=== PATIENT | male | born 1985 | race Caucasian/White ===

== ENCOUNTER 2024-03-14 11:49 | Emergency (ER) | payer OTHER, SELFPAY ==
[2024-03-14 12:00] VITALS: BP 168/121; PULSE 85; RESP 16; TEMP 36.5; O2SAT 95; BMI 38.9
--- NOTE | 2024-03-14 12:42 | ED_ITS ---
HPI - Abdominal Pain 2 General: Chief Complaint: Abdominal Pain Stated Complaint: belly button pain and bleeding Time Seen by Provider: 03/14/24 12:38 Source: patient Mode of arrival: ambulatory Limitations: no limitations History of Present Illness: 39-year-old male states he has been havi ng some pain in his umbilicus over the last week. States he had some drainage from the umbilicus and has had erythema around his stomach to thinks he had roughly palm sized area of erythema he has noticed it is red. States pain sharp in nature rates a 7 out of 10 denies any fevers denies any vomiting or diarrhea Associated Symptoms: Denies chills, diarrhea, dysuria, fever(s), nausea and vomiting Review of Systems 2 Const: Denies: fever(s), chills, body aches or change in appetite ENMT: Denies: throat pain or dental pain Card: Denies: chest pain Resp: Denies: dyspnea GI: Reports: abdominal pain; Denies: nausea, vomiting or diarrhea : Denies: dysuria Musc: Denies: neck pain or back pain Skin/Breast: Reports: erythema; Denies: rash Neuro: Denies: headache(s) Physical Exam 2 Const: COMMON NORMALS: no acute distress, patient oriented x3 and healthy appearing HENMT: COMMON NORMALS: normocephalic and atraumatic HEAD & SCALP: n ormocephalic and atraumatic Eye: COMMON NORMALS: conjunctivae normal CONJUNCTIVA: Yes conjunctivae normal Neck/C-Spine: COMMON NORMALS: full ROM and supple Chest: COMMONS NORMALS: normal inspection of the chest Resp: COMMON NORMALS: normal respiratory effort Cardio: COMMON NORMALS: regular rate, regular rhythm and No murmurs present (Cardio) RATE: regular rate RHYTHM: regular rhythm GI: COMMON NORMALS: Soft to palpation, non-tender and no masses PALPATION: Yes Soft to palpation OTHER: Slight drainage noted from umbilicus he does have surrounding erythema consistent with a cellulitis Extremity: COMMON NORMALS: normal to inspection and full ROM Neuro: COMMON NORMALS: patient oriented x3, moves all extremities and no focal motor deficits Psych: COMMON NORMALS: mental status grossly normal, Normal thought process present and cooperative THOUGHT PROCESS: Normal thought process present Skin: COMMON NORMALS: no rashes or lesions noted and no wounds GENERAL SKIN EXAM: no rashes or lesions noted Course 2 Vital Signs: Vital signs: Vital Signs Temperature 97.7 F 03/14/24 12:00 Pulse Rate 95 03/14/24 13:02 Respiratory Rate 16 03/14/24 12:00 Blood Pressure 170/111 03/14/24 13:02 Pulse Oximetry 96 03/14/24 13:02 Oxygen Delivery Me thod Room Air 03/14/24 13:02 MDM - Abdominal Pain Medical Decision Making Patient presents here cellulitis at his umbilicus no abscess we will start him on antibiotics he is follow-up with PCP return if worsening. Medical Records I reviewed the patient's medical records. Lab Data I reviewed the patient's lab results. 03/14/24 12:21 03/14/24 12:21 Labs/Radiology: Radiology Impressions Abdomen/Pelvis CT 03/14/24 12:46 IMPRESSION: 1. Prominent periumbilical soft tissue prominence, subcutaneous edema and overlying skin thickening, compatible with cellulitis. No convincing organized collection. 2. 4 mm right lower lobe nodular density. For patients at low risk (minimal or absent history of smoking and of other known risk factors), no routine follow-up is indicated. For patients at high risk (history of smoking or of other known risk factors), consider optional CT Chest at 12 months. (Reference: Manoj) 3. Additional findings, as above. REFERENCES: Manoj Mast, et al. Guidelines for Management of Incidental Pulmonary Nodules Detected on CT Images: From the Fleischner Society 2017. Radiology. 2017;284(1):228-243. Laboratory Results WBC 16.57 10^3/uL (3.29-11.43) H 03/14/24 12:21 RBC 4.89 10^6/uL (3.85-5.65) 03/14/24 12:21 Hgb 15.60 g/dL (11.27-16.99) 03/14/24 12:21 Hct 45.4 % (37-53) 03/14/24 12:21 MCV 92.8 fl (82-101) 03/14/24 12:21 MCH 31.9 pg (27-33) 03/14/24 12:21 MCHC 34.4 g/dL (30-55) 03/14/24 12:21 RDW 12.7 % (12.1-15.1) 03/14/24 12:21 Plt Count 305 10^3/cmm (157-399) 03/14/24 12:21 MPV 9.8 fL (7.4-10.4) 03/14/24 12:21 Neut % (Auto) 77.2 % 03/14/24 12:21 Lymph % (Auto) 13.9 % 03/14/24 12:21 [place] % (Auto) 6.2 % 03/14/24 12:21 Eos % (Auto) 1.6 % 03/14/24 12:21 Baso % (Auto) 0.4 % 03/14/24 12:21 Neut # (Auto) 12.79 10^3/uL (1.8-7.7) H 03/14/24 12:21 Lymph # (Auto) 2.3 10^3/uL (0.8-4.8) 03/14/24 12:21 [place] # (Auto) 1.0 10^3/uL (0.2-0.9) H 03/14/24 12:21 Eos # (Auto) 0.3 10^3/uL (0.0-0.8) 03/14/24 12:21 Baso # (Auto) 0.1 10^3/uL (0.0-0.1) 03/14/24 12:21 Nucleated RBC % (auto) 0 % 03/14/24 12:21 Nucleated RBCs # 0.0 /100WBC 03/14/24 12:21 PT 13.50 SECONDS (12.1-14.9) 03/14/24 12:21 INR 1.00 (0.8-1.2) 03/14/24 12:21 Sodium 135 mmol/L (136-145) L 03/14/24 12:21 Potassium 3.7 mmol/L (3.5-5.1) 03/14/24 12:21 Chloride 99 mmol/L (98-107) 03/14/24 12:21 Carbon Dioxide 27 mmol/L (22-29) 03/14/24 12:21 Anion Gap 12.7 (5-19) 03/14/24 12:21 BUN 11 mg/dL (6-20) 03/14/24 12:21 Creatinine 0.8 mg/dL (0.7-1.2) 03/14/24 12:21 GFR Calculation 107.1 mL/min (90-130) 03/14/24 12:21 Glucose 184 mg/dL (65-115) H 03/14/24 12:21 Calculated Osmolality 284 mOsm/kg (285-295) L 03/14/24 12:21 Calcium 8.8 mg/dL (8.5-10.5) 03/14/24 12:21 Total Bilirubin 0.9 mg/dL (0.15-1.2) 03/14/24 12:21 AST 49 U/L (0-40) H 03/14/24 12:21 ALT 95 U/L (0-41) H 03/14/24 12:21 Alkaline Phosphatase 120 U/L (40-130) 03/14/24 12:21 Total Protein 7.8 g/dL (6.6-8.7) 03/14/24 12:21 Albumin 4.2 g/dL (3.5-5.2) 03/14/24 12:21 Globulin 3.6 g/dL (1.3-4.6) 03/14/24 12:21 Lipase 28 U/L (13-60) 03/14/24 12:21 All radiology interpretation(s) finalized by discharge Discharge Plan Discharge Patient Disposition: Home Clinical Impression: Cellulitis Qualifiers: Site of cellulitis: trunk Site of cellulitis of trunk: umbilicus Qualified Code(s): L03.316 - Cellulitis of umbilicus Condition: Stable Prescriptions: New cephalexin 500 mg capsule 500 mg PO TID 7 Days Qty: 21 0RF No Action sertraline 100 mg tablet 200 mg PO BEDTIME Discharge Orders: Discharge ED (Routine); Ordered 03/14/24 Ordered By: Thong Toussaint Referrals: Everardo Thomas DO [Primary Care Provider] - 1-3 days Discharge Diet: Advance as tolerated Discharge Activity: Resume usual activity Patient Instructions: Cellulitis (ED) Coding Level of Care Code ED Room Clerk for Nabila Farrar
[2024-03-14 12:43] LABS: Basophils # 0.1 10^3/uL (0.0-0.1); Basophils % 0.4 %; Eosinophils # 0.3 10^3/uL (0.0-0.8); Eosinophils % 1.6 %; Hematocrit 45.4 % (37-53); Lymphocytes # 2.3 10^3/uL (0.8-4.8); Lymphocytes % 13.9 %; Mean Corpuscular HGB Conc 34.4 g/dL (30-55); Mean Corpuscular Hemoglobin 31.9 pg (27-33); Mean Corpuscular Volume 92.8 fl (82-101); Mean Platelet Volume 9.8 fL (7.4-10.4); Monocytes % 6.2 %; Neutrophils # 12.79 10^3/uL (1.8-7.7); Neutrophils % 77.2 %; Nucleated Red Blood Cells % 0 %; Platelet Count 305 10^3/cmm (157-399); Red Blood Count 4.89 10^6/uL (3.85-5.65); Red Cell Distribution Width 12.7 % (12.1-15.1); White Blood Count 16.57 10^3/uL (3.29-11.43)
--- NOTE | 2024-03-14 12:46 | CTR_ITS ---
PROCEDURE INFORMATION: Exam: CT Abdomen And Pelvis With Contrast Exam date and time: 03/14/2024 1:14 PM Age: 39 years old Clinical indication: Abdominal pain; Periumbilical; Prior surgery; Surgery date: 6+ months; Surgery type: 4x hernia; Additional info: Abd pain TECHNIQUE: Imaging protocol: Computed tomography of the abdomen and pelvis with contrast. Axial, coronal and sagittal reformatted images were created and reviewed. Radiation optimization: All CT scans at this facility use at least one of these dose optimization techniques: automated exposure control; mA and/or kV adjustment per patient size (includes targeted exams where dose is matched to clinical indication); or iterative reconstruction. Contrast material: OMNI 350; Contrast volume: 100 ml; Contrast route: INTRAVENOUS (IV); COMPARISON: No relevant prior studies available. RADIATION DOSE METRICS: Total DLP (mGy-cm): 1216.8 FINDINGS: Lungs: 4 mm right lower lobe nodular density. Diaphragm: Small hiatal hernia. Liver: Mild hepatomegaly. Diffuse hepatic steatosis. Gallbladder and bile ducts: No radiodense gallstones. No biliary ductal dilatation. Pancreas: Unremarkable. Spleen: Unremarkable. Adrenal glands: Normal. No mass. Kidneys and ureters: No mass. No radiodense calculi. No hydronephrosis. Stomach and bowel: No bowel wall thickening. No obstruction. No pneumatosis. Appendix: Normal. Intraperitoneal space: No free fluid. No organized fluid collection. No free air. Vasculature: Unremarkable. No aneurysm. Lymph nodes: No pathologically enlarged lymph nodes. Urinary bladder: Unremarkable as visualized. Reproductive: Unremarkable. Bones/joints: No acute osseous abnormality. Soft tissues: Prominent periumbilical soft tissue prominence, subcutaneous edema and overlying skin thickening. No convincing organized collection. CT/CT abdomen pelvis w con* [id number] IMPRESSION: 1. Prominent periumbilical soft tissue prominence, subcutaneous edema and overlying skin thickening, compatible with cellulitis. No convincing organized collection. 2. 4 mm right lower lobe nodular density. For patients at low risk (minimal or absent history of smoking and of other known risk factors), no routine follow-up is indicated. For patients at high risk (history of smoking or of other known risk factors), consider optional CT Chest at 12 months. (Reference: Manoj) 3. Additional findings, as above. REFERENCES: Manoj Mast et al. Guidelines for Management of Incidental Pulmonary Nodules Detected on CT Images: From the Fleischner Society 2017. Radiology. 2017;284(1):228-243.
[2024-03-14 12:59] LABS: Alanine Aminotransferase 95 U/L (0-41); Albumin Level 4.2 g/dL (3.5-5.2); Alkaline Phosphatase 120 U/L (40-130); Anion Gap 12.7 (5-19); Aspartate Amino Transferase 49 U/L (0-40); Blood Urea Nitrogen 11 mg/dL (6-20); Calcium 8.8 mg/dL (8.5-10.5); Carbon Dioxide 27 mmol/L (22-29); Chloride 99 mmol/L (98-107); Creatinine Clr Calc Pharmacy 166.3208; Globulin 3.6 g/dL (1.3-4.6); Glomerular Filtration Rate 107.1 mL/min (90-130); Glucose 184 mg/dL (65-115); Lipase 28 U/L (13-60); Osmolality Calculated 284 mOsm/kg (285-295); Potassium 3.7 mmol/L (3.5-5.1); Sodium 135 mmol/L (136-145); Total Bilirubin 0.9 mg/dL (0.15-1.2); Total Protein 7.8 g/dL (6.6-8.7)
[2024-03-14 13:02] VITALS: BP 170/111; PULSE 95; O2SAT 96
[2024-03-14] MEDS: iohexol 350 mg/mL 500 mL Btl (per mL) IV (13:13)
[2024-03-14] MEDS: cefTRIAXone 1,000 MG in sodium chloride 0.9% (plus) 50 ML 100 MG IV (14:07)
[2024-03-14 14:10] VITALS: BP 140/95; PULSE 86; O2SAT 96
[2024-03-14 15:12] VITALS: BP 154/99; PULSE 93; O2SAT 96
== END 2024-03-14 15:10 | disposition home or self-care (01) ==
PROVIDERS: Emergency Provider Emergency Medicine; PCP Family Medicine
DX: L03.316 Cellulitis of umbilicus (principal)
CPT/HCPCS: 36415; 74177; 80053; 83690; 85025; 85610; 96374; 99285; J0696; Q9967

== ENCOUNTER 2024-12-24 08:11 | Inpatient (IN) | payer OTHER, SELFPAY ==
[2024-12-24 08:41] VITALS: BP 167/108; PULSE 94; RESP 19; TEMP 36.4; O2SAT 100; BMI 38.4
--- NOTE | 2024-12-24 08:41 | W.ED.SOB ---
HPI - SOB/Dyspnea General: Chief Complaint: Shortness of Breath/Dyspnea Stated Complaint: SOB Time Seen by Provider: 12/24/24 08:39 History of Present Illness: HPI Narrative: 39-year-old male presents emergency room with complaint of shortness of breath and chest discomfort. He said chronic shortness of breath from his [facility] this they think he may have some restrictive lung disease. Patient is not diabetic he has no history of any heart arrhythmias or coronary artery disease. He denies any fever sweats chills or productive cough. No hemoptysis no history of PEs. Associated symptoms: Reports chest pain; Deny abdominal pain or fever(s) Related Data Home Medications ?Medication ?Instructions ?Recorded ?Confirmed sertraline 100 mg tablet 200 mg PO DAILY 03/14/24 12/24/24 albuterol sulfate 90 mcg/actuation 2 puff inhalation QID PRN 12/24/24 12/24/24 aerosol inhaler Shortness Of Breath aripiprazole 10 mg tablet 10 mg PO DAILY 12/24/24 12/24/24 glimepiride 1 mg tablet 1 mg PO QAM 12/24/24 12/24/24 lisdexamfetamine 30 mg capsule 30 mg PO QAM 12/24/24 12/24/24 (Vyvanse) multivit,calcium,min-folic acid 1 tab PO DAILY 12/24/24 12/24/24 240 mcg-D3 25 mcg-lycop 300 mcg tablet (One A Day Men Complete) mupirocin 2 % topical ointment 1 applic topical BID PRN Skin 12/24/24 12/24/24 Irritation testosterone cypionate 200 mg/mL 50 mg SUBCUT Q7D 12/24/24 12/24/24 intramuscular oil trazodone 50 mg tablet 50 mg PO BEDTIME 12/24/24 12/24/24 Allergies Allergy/AdvReac Type Severity Reaction Status Date / Time azithromycin Allergy ADR-Seizure Verified 12/24/24 08:52 Review of Systems Const: Denies: fever(s) or chills Card: Reports: chest pain Resp: Reports: dyspnea GI: Denies: abdominal pain : Denies: dysuria, urinary frequency or urinary urgency Musc: Denies: neck pain or back pain Skin/Breast: Denies: rash PFSH ED PFSH: Medical History Anxiety PTSD (post-traumatic stress disorder) Type 2 diabetes mellitus Physical Exam Const: GENERAL APPEARANCE: cooperative ORIENTATION/CONSCIOUSNESS: Yes awake, Yes oriented to person, Yes oriented to place and Yes oriented to time HENMT: COMMON NORMALS: normocephalic, atraumatic and hearing grossly normal bilaterally HEAD & SCALP: normocephalic and atraumatic Resp: COMMON NORMALS: normal respiratory effort, No retractions, No use of accessory muscles and clear to auscultation bilaterally AUSCULTATION: clear to auscultation bilaterally Cardio: COMMON NORMALS: regular rate, regular rhythm and No murmurs present (Cardio) RATE: regular rate RHYTHM: regular rhythm GI: COMMON NORMALS: Soft to palpation and No hepatosplenomegaly present AUSCULTATION: Yes normoactive bowel sounds PALPATION: Yes Soft to palpation, No Tenderness to palpation present (GI), No Guarding due to palpation present (GI) and Yes No hepatosplenomegaly present Extremity: COMMON NORMALS: normal to inspection, capillary refill normal, no clubbing, cyanosis or edema, no calf tenderness and no pedal edema Neuro: SENSORIUM/ORIENTATION: Yes oriented to person, Yes oriented to place and Yes oriented to time Skin: COMMON NORMALS: no rashes or lesions noted GENERAL SKIN EXAM: no rashes or lesions noted Course Vital Signs: Vital signs: Vital Signs Temperature 98.0 F 12/24/24 13:22 Pulse Rate 93 12/24/24 13:22 Respiratory Rate 17 12/24/24 13:22 Blood Pressure 140/87 12/24/24 13:22 Pulse Oximetry 99 12/24/24 15:30 Oxygen Delivery Me thod Room Air 12/24/24 15:30 MDM - SOB/Dyspnea Medical Decision Making EKG reviewed see EKG on the chart. No acute ST changes nonspecific changes no ST elevation. His cardiac enzymes did trend positive with a positive delta troponin of 17. He still is complaining of some mild chest discomfort he rates at a 1 or 2 earlier was up to 6 or 7 patient started on IV nitro blood pressure is elevated as well in addition to this he was heparinized. Discussed with hospitalist and with cardiology. Orders written for admission Medical Records I reviewed the patient's medical records. Lab Data I reviewed the patient's lab results. 12/24/24 09:06 12/24/24 09:06 Labs/Radiology: Radiology Impressions Chest X-Ray 12/24/24 08:47 IMPRESSION: 1. Negative chest. Laboratory Results WBC 15.10 10^3/uL (3.29-11.43) H 12/24/24 09:06 RBC 5.55 10^6/uL (3.85-5.65) 12/24/24 09:06 Hgb 15.40 g/dL (11.27-16.99) 12/24/24 09:06 Hct 45.5 % (37-53) 12/24/24 09:06 MCV 82.0 fl (82-101) 12/24/24 09:06 MCH 27.7 pg (27-33) 12/24/24 09:06 MCHC 33.8 g/dL (30-55) 12/24/24 09:06 RDW 13.0 % (12.1-15.1) 12/24/24 09:06 Plt Count 285 10^3/cmm (157-399) 12/24/24 09:06 MPV 10.6 fL (7.4-10.4) H 12/24/24 09:06 Neut % (Auto) 73.8 % 12/24/24 09:06 Lymph % (Auto) 17.7 % 12/24/24 09:06 Centre % (Auto) 6.8 % 12/24/24 09:06 Eos % (Auto) 1.1 % 12/24/24 09:06 Baso % (Auto) 0.3 % 12/24/24 09:06 Neut # (Auto) 11.14 10^3/uL (1.8-7.7) H 12/24/24 09:06 Lymph # (Auto) 2.7 10^3/uL (0.8-4.8) 12/24/24 09:06 Centre # (Auto) 1.0 10^3/uL (0.2-0.9) H 12/24/24 09:06 Eos # (Auto) 0.2 10^3/uL (0.0-0.8) 12/24/24 09:06 Baso # (Auto) 0.1 10^3/uL (0.0-0.1) 12/24/24 09:06 Nucleated RBC % (auto) 0 % 12/24/24 09:06 Nucleated RBCs # 0.0 /100WBC 12/24/24 09:06 Sodium 139 mmol/L (136-145) 12/24/24 09:06 Potassium 3.3 mmol/L (3.5-5.1) L 12/24/24 09:06 Chloride 100 mmol/L (98-107) 12/24/24 09:06 Carbon Dioxide 24 mmol/L (22-29) 12/24/24 09:06 Anion Gap 18.3 (5-19) 12/24/24 09:06 BUN 16 mg/dL (6-20) 12/24/24 09:06 Creatinine 0.9 mg/dL (0.7-1.2) 12/24/24 09:06 GFR Calculation 93.5 mL/min (90-130) 12/24/24 09:06 Glucose 162 mg/dL (65-115) H 12/24/24 09:06 Estimat Average Glucose 126 12/24/24 09:06 Hemoglobin A1c 6.0 % (4.0-6.0) 12/24/24 09:06 Calculated Osmolality 293 mOsm/kg (285-295) 12/24/24 09:06 Lactic Acid 1.4 mmol/L (0.5-2.2) 12/24/24 11:38 Calcium 9.8 mg/dL (8.5-10.5) 12/24/24 09:06 Iron 90 ug/dL (59-158) 12/24/24 09:06 TIBC 264 mcg/dl 12/24/24 09:06 % Saturation 34.0 % (20-50) 12/24/24 09:06 Unsat Iron Binding 174 ug/dL (112-347) 12/24/24 09:06 Total Bilirubin 0.5 mg/dL (0.15-1.2) 12/24/24 09:06 AST 32 U/L (0-40) 12/24/24 09:06 ALT 36 U/L (0-41) 12/24/24 09:06 Alkaline Phosphatase 111 U/L (40-130) 12/24/24 09:06 Troponin T Baseline 98 ng/L (0-15) H 12/24/24 09:06 Troponin T 120 Minute 115.1 ng/L (0-15) H 12/24/24 11:38 Delta Troponin T 17.1 ABS# (0-10) H* 12/24/24 11:38 Total Protein 7.7 g/dL (6.6-8.7) 12/24/24 09:06 Albumin 4.6 g/dL (3.5-5.2) 12/24/24 09:06 Globulin 3.1 g/dL (1.3-4.6) 12/24/24 09:06 Vitamin B12 896 pg/mL (232-1245) 12/24/24 09:06 Procalcitonin 0.05 ng/mL (0-0.5) 12/24/24 11:38 TSH 1.92 uIU/mL (0.27-4.20) 12/24/24 09:06 Influenza A (PCR) Negative (Negative) 12/24/24 10:50 Influenza Type B (PCR) Negative (Negative) 12/24/24 10:50 RSV (PCR) Negative (Negative) 12/24/24 10:50 SARS-CoV-2 (PCR) Negative (Negative) 12/24/24 10:50 All radiology interpretation(s) finalized by discharge Discharge Plan Discharge Patient Disposition: Admitted As Inpatient Admit Provider: Nain Miller Clinical Impression: Non-ST elevation WI (NSTEMI), Hypertension, Type 2 diabetes mellitus, Leukocytosis Condition: Stable Coding Level of Care Code ED Degreaser Operator for Nabila Farrar
--- NOTE | 2024-12-24 08:47 | ECG_ITS ---
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
--- NOTE | 2024-12-24 08:47 | XR_ITS ---
WS: [id number] Exam: XR chest 1V portable [id number] Date/Time of Exam: 12/24/2024 8:50 AM Reason For Exam: dyspnea/cough No priors. Lungs are clear and fully expanded. Normal cardiomediastinal silhouette and bony structures. No pleural effusion. XR/XR chest 1V portable [id number] IMPRESSION: 1. Negative chest.
--- NOTE | 2024-12-24 09:11 | PC.PHAR ---
[facility] is [facility] 12/24/24 9:12am. Pt is on several medications and does not remember strengths.
[2024-12-24 09:12] LABS: Basophils # 0.1 10^3/uL (0.0-0.1); Basophils % 0.3 %; Eosinophils # 0.2 10^3/uL (0.0-0.8); Eosinophils % 1.1 %; Hematocrit 45.5 % (37-53); Lymphocytes # 2.7 10^3/uL (0.8-4.8); Lymphocytes % 17.7 %; Mean Corpuscular HGB Conc 33.8 g/dL (30-55); Mean Corpuscular Hemoglobin 27.7 pg (27-33); Mean Platelet Volume 10.6 fL (7.4-10.4); Monocytes % 6.8 %; Neutrophils # 11.14 10^3/uL (1.8-7.7); Neutrophils % 73.8 %; Nucleated Red Blood Cells % 0 %; Platelet Count 285 10^3/cmm (157-399); Red Blood Count 5.55 10^6/uL (3.85-5.65)
[2024-12-24 09:31] LABS: Troponin(5th) Baseline 98 ng/L (0-15)
[2024-12-24 09:40] LABS: Alanine Aminotransferase 36 U/L (0-41); Albumin Level 4.6 g/dL (3.5-5.2); Alkaline Phosphatase 111 U/L (40-130); Anion Gap 18.3 (5-19); Aspartate Amino Transferase 32 U/L (0-40); Blood Urea Nitrogen 16 mg/dL (6-20); Calcium 9.8 mg/dL (8.5-10.5); Carbon Dioxide 24 mmol/L (22-29); Chloride 100 mmol/L (98-107); Creatinine Clr Calc Pharmacy 142.6315; Globulin 3.1 g/dL (1.3-4.6); Glomerular Filtration Rate 93.5 mL/min (90-130); Glucose 162 mg/dL (65-115); Osmolality Calculated 293 mOsm/kg (285-295); Potassium 3.3 mmol/L (3.5-5.1); Sodium 139 mmol/L (136-145); Total Bilirubin 0.5 mg/dL (0.15-1.2); Total Protein 7.7 g/dL (6.6-8.7)
--- NOTE | 2024-12-24 10:27 | PC.PHAR ---
Pt is [facility]. [phone]. Medications entered via Pharmacist verbal orders given by phone.
--- NOTE | 2024-12-24 10:34 | ECG_ITS ---
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
[2024-12-24] MEDS: ketorolac 30 mg/mL INJ IVP (11:02)
[2024-12-24 11:49] LABS: Influenza A NEGATIVE (Negative); Influenza B NEGATIVE (Negative); Respiratory Syncytial Virus Ce NEGATIVE (Negative); SARS-CoV-2 PCR NEGATIVE (Negative)
[2024-12-24 12:09] LABS: Troponin 5 2HR 115.1 ng/L (0-15)
[2024-12-24 12:10] LABS: Troponin 5 2HR Delta 17.1 ABS# (0-10)
--- NOTE | 2024-12-24 12:14 | ECG_ITS ---
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
[2024-12-24] MEDS: nitroglycerin drip 50 MG/250 ML PREMIX IV (12:38)
[2024-12-24] MEDS: aspirin 81 mg Chew Tablet 324 MG PO (12:39)
[2024-12-24] MEDS: heparin drip 25,000 UNIT/500 ML PREMIX 35 UNIT IV (12:53)
--- NOTE | 2024-12-24 12:54 | USCV_ITS ---
Micah Boone Age: 39 Gender: M : 1985 Exam Date: 12/24/2024 14:49 Ordering Phys: Nain Miller MD Technologist: Exam Location: [facility] [place] Indication: nstemi BP: 140 / 87 HR: 80 Rhythm: Sinus Technical Quality: Adequate MEASUREMENTS (Male / Female) Normal Values 2D ECHO LV Diastolic Diameter PLAX 5.7 cm 4.2 - 5.9 / 3.9 - 5.3 cm IVS Diastolic Thickness 1.2 cm 0.6 - 1.0 / 0.6 - 0.9 cm IVS Systolic Thickness 1.7 cm LVPW Diastolic Thickness 1.4 cm 0.6 - 1.0 / 0.6 - 0.9 cm LVPW Systolic Thickness 1.5 cm LVOT Diameter 2.3 cm LV Ejection Fraction 2D Teich 47.3 % LV Ejection Fraction MOD 4C 27.0 % LV Ejection Fraction MOD 2C 42.1 % LV Ejection Fraction 2C AL 41.2 % LA Diameter 3.2 cm RA Systolic Volume 4C AL 18.1 ml RA Systolic Volume 4C MOD 16.3 ml Aorta at Sinotubular Diameter 2.4 cm M-MODE LA Ao Ratio MM 1.1 AV Cusp Separation MM 2.6 cm DOPPLER AV Peak Velocity 119.0 cm/s LVOT Peak Velocity 77.0 cm/s AV Area Cont Eq vti 3.2 cm squared AV Area Cont Eq pk 2.6 cm squared MV Peak Velocity 104.0 cm/s MV Area PHT 3.6 cm squared Mitral E to A Ratio 0.9 TR Peak Velocity 117.0 cm/s TR Peak Gradient 5.5 mmHg TV Peak E Velocity 66.0 cm/s PV Peak Velocity 130.0 cm/s FINDINGS Left Ventricle Left ventricle is mildly dilated. LV systolic function is mildly reduced with EF of 45-50%. Mild global hypokinesis. Grade 1 diastolic dysfunction Right Ventricle Normal in size Right Atrium Normal in size Left Atrium Normal in size Mitral Valve Structurally normal mitral valve. Mild mitral regurgitation Aortic Valve Grossly normal. No significant stenosis or regurgitation. Tricuspid Valve Insufficient TR jet to calculate RVSP Pulmonic Valve Not well visualized Pericardium Normal Aorta Normal in size IVC Not well visualized CONCLUSIONS LV systolic function is mildly reduced with EF of 45-50% Grade 1 diastolic dysfunction Mild mitral regurgitation No comparison studies are available. Brock Jose MD (Electronically Signed) Final Date: 24 December 2024 20:18 S
[2024-12-24] MEDS: heparin 5,000 unit/mL INJ 1 mL IVP (12:59)
[2024-12-24 13:03] VITALS: BP 131/89; PULSE 90; RESP 18; O2SAT 93
--- NOTE | 2024-12-24 13:05 | PM.HP ---
Providers/Chief Complaint Admitting Physician: Nain Miller MD Primary Care Provider: Everardo Thomas DO Chief Complaint: SOB History of Present Illness Micah Boone is a 39 year old male with past medical history of hyperlipidemia, type 2 diabetes mellitus, anxiety, PTSD presents to the ER after ongoing chest pain and heaviness which is retrosternal which started at 12:45 AM. The symptoms persisted so they present to the ER. Patient has been having difficulty in breathing on exertion ongoing for last 3 to 4 months. Currently when seen he is on a heparin drip and a nitro drip complaining of occasional chest pressures with a blood pressure of 140 systolics with heart rate of 100?1 10 bpm. Review of Systems General: Reports: 10 or more systems reviewed and unremarkable except in HPI and below Const: Denies: fever(s), chills, body aches, change in appetite, change in weight, malaise, night sweats, diaphoresis, change in sleep pattern, daytime sleepiness or snoring Eyes: Denies: change in vision, blurry vision, photophobia, eye discomfort or eye discharge ENMT: Denies: throat pain, enlarged tonsils, hoarseness, mouth pain, oral sores, dry mouth, tinnitus, nasal congestion or post nasal drip Card: Denies: chest pain, palpitations, irregular heart rhythm, edema, swelling of feet/ankles, lightheadedness, syncope, pre-syncope, dyspnea on exertion, orthopnea, leg pain with exertion or acrocyanosis Resp: Denies: dyspnea, productive cough, non-productive cough, wheezing, stridor, pain on inspiration, change in phlegm color, hemoptysis or chest congestion GI: Denies: abdominal pain, nausea, vomiting, hematemesis, coffee ground emesis, dysphagia, heartburn, diarrhea, constipation, bloating, GI cramping, change in bowel habits, pain on defecation, hematochezia or melena : Denies: flank pain, difficulty urinating, dysuria, urinary frequency, urinary urgency, urinary hesitancy, urinary dribbling, difficulty starting urination, change in urine stream, nocturia or hematuria Musc: Denies: neck pain, back pain, extremity pain, joint pain, joint swelling, joint redness, joint stiffness or limited range of motion Neuro: Denies: headache(s), numbness in extremities, weakness in extremities, sensory changes, lack of coordination, difficulty walking, frequent falls, dizziness, vertigo, confusion, Slurred speech present, difficulty communicating thoughts or seizure-like activity Psych: Denies: anxiety, depression, mood swings, panic attacks, hopelessness or irritability Endo: Denies: polyuria, polydipsia, tired all the time, cold intolerance, excessive sweating, flushing or heat intolerance Ramón/Lymph: Denies: easy bruising or easy bleeding All/Imm: Denies: tongue swelling, facial swelling or acute wheezing Medications/Allergies Home Medications ?Medication ?Instructions ?Recorded ?Confirmed ?Last Taken ?Type sertraline 100 mg tablet 200 mg PO DAILY 03/14/24 12/24/24 12/23/24 History albuterol sulfate 90 mcg/actuation 2 puff inhalation QID PRN 12/24/24 12/24/24 Unknown History aerosol inhaler Shortness Of Breath aripiprazole 10 mg tablet 10 mg PO DAILY 12/24/24 12/24/24 12/23/24 History glimepiride 1 mg tablet 1 mg PO QAM 12/24/24 12/24/24 Unknown History lisdexamfetamine 30 mg capsule 30 mg PO QAM 12/24/24 12/24/24 12/24/24 History (Vyvanse) multivit,calcium,min-folic acid 1 tab PO DAILY 12/24/24 12/24/24 12/24/24 History 240 mcg-D3 25 mcg-lycop 300 mcg tablet (One A Day Men Complete) mupirocin 2 % topical ointment 1 applic topical BID PRN Skin 12/24/24 12/24/24 Unknown History Irritation testosterone cypionate 200 mg/mL 50 mg SUBCUT Q7D 12/24/24 12/24/24 Unknown History intramuscular oil trazodone 50 mg tablet 50 mg PO BEDTIME 12/24/24 12/24/24 12/23/24 History Allergies Allergy/AdvReac Type Severity Reaction Status Date / Time azithromycin Allergy ADR-Seizure Verified 12/24/24 08:52 PFSH Acute PFSH: Medical History (Updated 12/24/24 @ 14:45 by Nain Miller MD) Anxiety PTSD (post-traumatic stress disorder) Hyperlipidemia Type 2 diabetes mellitus Vitals/I&O/Wt Last Vital Signs Temp 97.6 F 12/24/24 08:41 Pulse 90 12/24/24 13:03 Resp 18 12/24/24 13:03 BP 131/89 12/24/24 13:03 Pulse Ox 93 12/24/24 13:03 O2 Del Method Room Air 12/24/24 08:41 Weight last 48 hrs Weight 121.563 kg Physical Exam Narrative: General: No acute distress, AO x3, anxious HEENT: PERRLA, pupils bilaterally equal and reactive Chest: Normal vesicular breath sounds, no added sounds, equal good air entry bilaterally CVS: S1-S2 regular, no murmurs, no tachycardia, no gallops, no rubs Abdomen: Soft, nontender, no organomegaly, bowel sounds present Neuro: No focal deficits, no facial deformity, AO x3, power 5/5 in all limbs Data 12/24/24 09:06 12/24/24 09:06 A&P Assessment and plan (1) Non-ST elevation [place] (NSTEMI): Cycle troponins. Check echocardiogram. Aspirin 81 mg daily, atorvastatin 80 mg daily. Check A1c, lipid panel. Start on metoprolol 25 mg twice daily. Continue with heparin drip. Currently on nitro drip. Uptitrate as per chest pressures keeping blood pressures between 100-140 systolics. Cardiology on board. (2) Type 2 diabetes mellitus: Hold off on OHA. Sliding scale at low-dose protocol. (3) Leukocytosis: No concerns for infection for now. No consolidation on chest x-ray. Check UA. Patient denies any dysuria. Hold off antibiotics for now. (4) Hyperlipidemia: Plan Continue other chronic medications. Carb consistent cardiac diet, n.p.o. after midnight. Heparin drip will be sufficient for DVT prophylaxis Protonix for PUD prophylaxis PDMP PDMP Reviewed: Last Reviewed 12/24/24 14:50 by Nain Miller MD Attestations Medical Necessity Statement*: Admission for more than 2 midnights for management of non-ST elevation OH requiring cardiac angiogram with ongoing chest pain requiring heparin and nitro drip. Coding Level of Care Code Acute Code for [facility] Fwd Diagnoses Non-ST elevation OH (NSTEMI) I21.4 Type 2 diabetes mellitus E11.9 Leukocytosis D72.829 Hyperlipidemia E78.5
[2024-12-24 13:22] VITALS: BP 140/87; PULSE 93; RESP 17; TEMP 36.7; O2SAT 96
[2024-12-24 13:22] LABS: Lactic Sepsis W/Reflex 1.4 mmol/L (0.5-2.2)
[2024-12-24 13:45] LABS: Estmated Average Glucose 126
[2024-12-24 13:50] LABS: Procalcitonin 0.05 ng/mL (0-0.5)
[2024-12-24 14:10] LABS: Iron 90 ug/dL (59-158); Thyroid Stimulating Hormone 1.92 uIU/mL (0.27-4.20); Total Iron Binding Capacity 264 mcg/dl; Unsaturated Iron Binding 174 ug/dL (112-347); Vitamin B12 896 pg/mL (232-1245)
--- NOTE | 2024-12-24 15:02 | P.CONIM_ITS ---
<Statement entered by Brock Jose M.D - 12/25/24 14:26> Patient was evaluated and cared for in conjunction with an advanced practice practitioner.? I personally examined the patient and reviewed the chart and all pertinent data including imaging, telemetry, and laboratory results.? I discussed the patient in detail with the advanced practice practitioner.? Please see? their note for complete consult note, testing results and agreed upon plan of care for the patient. GENERAL: Patient is alert, awake and oriented x3. HEART: Regular S1 and S2 LUNGS: Clear to auscultate bilaterally. CENTRAL NERVOUS SYSTEM: Grossly nonfocal. EXTREMITIES: Lower extremities with out edema bilaterally. NTEMI LV dysfunction Plan for coronary angiogram in the AM. Npo past midnight Continue heparin gtt. Contintue nitro. Chest pain has resolved now Thank you for involving us with care of this patient. Please call with questions. Providers/Reason For Consult 2 Consulting Physician/Specialty*: Dr. Jose Reason for Consult*: NSTEMI Requesting Physician: Dr. Miller Attending Physician: Nain Miller MD Primary Care Provider: Everardo Thomas DO History of Present Illness History of Present Illness Micah Boone is a 39 year old male history of type 2 diabetes, hypercholesterolemia, hypertension, obesity came into the emergency room today due to an episode of chest pain. He describes it as pressure and tightness across his whole chest with shortness of breath associated with this. He stated this occurred around 12 AM and he got up to walk to see if it would get better. He stated it did not get better so he came into the emergency room. He denies any orthopnea at this time. He states he has chronic shortness of breath in which he was told he had a lung function test that was abnormal. Does not smoke per patient. Currently denies any chest pressure or shortness of breath. He is on a nitro drip as well as heparin drip. Troponins on admission were 98?115 delta positive. EKG showed sinus tachycardia with nonspecific T wave abnormalities. No ST elevation noted. Review of Systems 2 Narrative: Consitutional: denies fever, chills, body aches, or changes in appetite, denies abnormal weight loss Eyes: Denies changes in vision Card: Denies chest pain, palpitations, irregular heart rhythm, edema, syncope, shortness of breath, orthopnea, leg pain with exertion Resp: Denies shortness of breath, denies hemoptysis, denies cough GI: denies abdominal pain, denies nausea or voimting, denies blood in stool : denies blood in urine, denies dysuria Musc: Denies extremity pain, denies limited range of motion or recent injury Skin: Denies rash, lesions, or wounds, denies changes to skin color Neuro: Denies nubmness in extremities, h/a, s/s of stroke Ramón: Denies easy bruiding/bleeding Medications/Allergies Home Medications ?Medication ?Instructions ?Recorded ?Confirmed ?Last Taken ?Type sertraline 100 mg tablet 200 mg PO DAILY 03/14/2412/23/24 History albuterol sulfate 90 mcg/actuation 2 puff inhalation Q ID PRN 12/24/24 12/24/24 Unknown History aerosol inhaler Shortness Of Breath aripiprazole 10 mg tablet 10 mg PO DAILY 12/24/2412/0512/23/24 History glimepiride 1 mg tablet 1 mg PO QAM 12/24/24 5 Unknown History lisdexamfetamine 30 mg capsule 30 mg PO QAM 12/24/24 0 12/24/24 12/24/24 History (Vyvanse) multivit,calcium,min-folic acid 1 tab PO DAILY 5 12/24/24 12/24/24 History 240 mcg-D3 25 mcg-lycop 300 mcg tablet (One A Day Men Complete) mupirocin 2 % topical ointment 1 applic topical BID SC N Skin 12/24/24 12/24/24 Unknown History Irritation testosterone cypionate 200 mg/mL 50 mg SUBCUT Q7D 12/0512/24/24 Unknown History intramuscular oil trazodone 50 mg tablet 50 mg PO BEDTIME 12/24/2412/23/24 History Allergies Allergy/AdvReac Type Severity Reaction Status Date / Time azithromycin Allergy ADR-Seizure Verified 12/24/24 08:52 Current Medications Generic Name Dose Route Start Last Admin Trade Name Freq PRN Reason Stop Dose Admin Heparin Sodium/Sodium Chloride 25,000 unit in 500 mls @ 0 mls/hr 12/24/24 12:30 12/24/24 12:53 Heparin Drip IV 14.4 unit/kg/hr CONT JENSEN 35 mls/hr Administration Protocol Per Protocol Nitroglycerin/Dextrose 50 mg in 250 mls @ 0 mls/hr 12/24/24 12:30 12/24/24 12:38 Nitroglycerin Drip IV 5 mcg/min .Q0M JENSEN 1.5 mls/hr Administration Protocol Per Protocol PFSH Acute 2 PFSH: Medical History (Updated 12/24/24 @ 15:08 by Clarice Adams NP) Anxiety PTSD (post-traumatic stress disorder) Type 2 diabetes mellitus Vitals/I&O/Wt Last Vital Signs Temp 98.0 F 12/24/24 13:22 Pulse 93 12/24/24 13:22 Resp 17 12/24/24 13:22 BP 140/87 12/24/24 13:22 Pulse Ox 96 12/24/24 13:22 O2 Del Method Room Air 12/24/24 13:22 Weight last 48 hrs Weight 268 lb Physical Exam 2 Narrative: General: No apparent distress, healthy appearing, well nourished HENMT: normoceophalic Muskuloskeletal: Full ROM Lymphatic: no lymphedema noted Respiratory: Normal respiratory effort, clear to auscultation bilaterally throughout all lung prakash, no use of accessory muscles Cardio: No JVD, regular rate, regular rhythm, S1 S2 normal, no murmurs, peripheral pulses 2+ radial palpated bilaterally GI: Normal to inspection, nondistended Extremities: Full ROM, normal, normal capillary refill, no cyanosis or edema Neuro: Alert and oriented x4, no focal motor deficits Psych: Affect normal, denies suicidal ideation, mental status grossly normal Skin: No rashes or lesions noted, no wounds Data 12/24/24 09:06 12/24/24 09:06 A&P Assessment and plan (1) Non-ST elevation [place] (NSTEMI): (2) Hyperlipidemia: Qualifiers: Hyperlipidemia type: unspecified Qualified Code(s): E78.5 - Hyperlipidemia, unspecified (3) Type 2 diabetes mellitus: Qualifiers: Diabetes mellitus custodial insulin use: without custodial use Diabetes mellitus complication status: without complication Qualified Code(s): E11.9 - Type 2 diabetes mellitus without complications (4) Hypertension: Qualifiers: Hypertension type: primary hypertension Qualified Code(s): I10 - Essential (primary) hypertension Plan At this time, patient has history of atypical chest pain. With elevated troponin and increased risk factors for CAD, recommend left heart catheterization with possible PCI for further investigation of coronary status. Will plan on doing this tomorrow. Agree with asa, statin, metoprolol. Thank you, Dr. Miller, for allowing us to care for this very pleasant 39 year old gentleman. PDMP PDMP Reviewed: Not Reviewed Consult Attestations 2 Medical Necessity Statement: Deferred to primary care. Coding Level of Care Code Acute Code for g Fwd Diagnoses Non-ST elevation LA (NSTEMI) I21.4 Hyperlipidemia, unspecified hyperlipidemia type E78.5 Hyperlipidemia type: unspecified Type 2 diabetes mellitus without complication, without long-term current use of insulin E11.9 Diabetes mellitus custodial insulin use: without intermediate designer use Diabetes mellitus complication status: without complication Primary hypertension I10 Hypertension type: primary hypertension
[2024-12-24] MEDS: ALPRAZolam 0.5 mg Tablet PO ×2 (15:19→20:35)
[2024-12-24] MEDS: metoprolol tartrate 25 mg Tablet PO ×2 (15:19→20:26)
[2024-12-24] MEDS: sodium chloride 0.9% 1,000 ML 50 ML IV (15:20)
[2024-12-24 15:30] VITALS: O2SAT 99
[2024-12-24 16:00] VITALS: BP 126/99; PULSE 81; RESP 16; TEMP 36.6; O2SAT 92
[2024-12-24 16:22] LABS: Troponin 5 6HR 216.1 ng/L (0-15); Troponin 5 6HR Delta 118.1 ng/L (0-12)
[2024-12-24 16:54] LABS: Bilirubin Urine Negative (Negative); Blood Urine 2+ (Negative); Glucose Urine UA Negative (Normal); Ketones Urine Trace (Negative); Leukocyte Esterase Urine Negative (Negative); Nitrate Urine Negative (Negative); Protein Urine Trace (Negative); Specific Gravity, Urine 1.028 (1.005-1.030); Urine Appearance Clear (CLEAR); Urine Color Dark Yellow (Yellow)
[2024-12-24 17:01] LABS: Amphetamines Screen Urine Positive (Negative); Barbiturates Screen Urine Negative (Negative); Benzodiazepines Screen Urine Negative (Negative); Cocaine Screen Urine Negative (Negative); Opiate Screen Urine Negative (Negative); PCP Screen Urine Negative (Negative); THC Screen Urine Positive (Negative)
[2024-12-24 17:03] LABS: Glucose Point of Care 181 mg/dL (70-110)
[2024-12-24 17:29] LABS: Add Urine Microscopic? YES; Bacteria Urine 1+ /hpf; Calcium Oxalate Crystals Urine 0-4 /hpf; Squamous Epithelial Cell Urine 0-4 /hpf (0-5); UA Manual Slide Review YES; UA Slide Review UA Slide Review Perf; WBC Urine 0-4 /hpf (0-5)
[2024-12-24] MEDS: insulin lispro 100 unit/1 mL SUBCUT (18:32)
[2024-12-24 19:35] LABS: Partial Thromboplastin Time 83.8 SECONDS (23.9-36.7)
[2024-12-24 19:39] VITALS: BP 112/80; PULSE 84; RESP 23; O2SAT 95
[2024-12-24] MEDS: atorvastatin 40 mg Tablet 80 MG PO (20:26)
[2024-12-24 20:57] LABS: Glucose Point of Care 147 mg/dL (70-110)
[2024-12-25] VITALS (56 sets, daily range): BP systolic 122–131; BP diastolic 73–87; PULSE 61–120; RESP 12–34; TEMP 36.5–36.9; O2SAT 82–97
[2024-12-25] MEDS: heparin drip 25,000 UNIT/500 ML PREMIX 32 UNIT IV (02:46)
[2024-12-25 03:02] LABS: Basophils # 0.1 10^3/uL (0.0-0.1); Basophils % 0.5 %; Eosinophils # 0.4 10^3/uL (0.0-0.8); Eosinophils % 2.6 %; Hematocrit 43.1 % (37-53); Lymphocytes # 4.9 10^3/uL (0.8-4.8); Lymphocytes % 33.2 %; Mean Corpuscular Hemoglobin 28.4 pg (27-33); Mean Corpuscular Volume 88.7 fl (82-101); Mean Platelet Volume 10.7 fL (7.4-10.4); Monocytes % 6.8 %; Neutrophils # 8.33 10^3/uL (1.8-7.7); Neutrophils % 56.4 %; Nucleated Red Blood Cells % 0 %; Platelet Count 220 10^3/cmm (157-399); Red Blood Count 4.86 10^6/uL (3.85-5.65); Red Cell Distribution Width 13.4 % (12.1-15.1)
[2024-12-25 03:34] LABS: Alanine Aminotransferase 33 U/L (0-41); Albumin Level 3.7 g/dL (3.5-5.2); Alkaline Phosphatase 85 U/L (40-130); Blood Urea Nitrogen 20 mg/dL (6-20); Calcium 9.1 mg/dL (8.5-10.5); Carbon Dioxide 21 mmol/L (22-29); Chloride 107 mmol/L (98-107); Chol HDL Ratio 6.96 mg/dL (1.0-5.00); Cholesterol 174 mg/dL (0-200); Globulin 2.9 g/dL (1.3-4.6); Glomerular Filtration Rate 107.1 mL/min (90-130); Glucose 112 mg/dL (65-115); HDL Cholesterol 25 mg/dL (60-100); LDL Cholesterol Calculated 93 mg/dL (50-129); LDL HDL Ratio 3.72 RATIO (0.00-3.22); Osmolality Calculated 293 mOsm/kg (285-295); Phosphorus 3.3 mg/dL (2.5-4.5); Sodium 140 mmol/L (136-145); Total Bilirubin 0.3 mg/dL (0.15-1.2); Total Protein 6.6 g/dL (6.6-8.7); Triglycerides 280 mg/dL (0-150)
[2024-12-25 03:41] LABS: Procalcitonin 0.04 ng/mL (0-0.5)
[2024-12-25 03:44] LABS: Anion Gap 15.5 (5-19); Aspartate Amino Transferase 50 U/L (0-40); Potassium 3.5 mmol/L (3.5-5.1)
[2024-12-25 06:35] LABS: Glucose Point of Care 133 mg/dL (70-110)
[2024-12-25 07:23] LABS: Partial Thromboplastin Time 36.5 SECONDS (23.9-36.7)
[2024-12-25 07:33] LABS: Folate Level 8.1 ng/mL (4.5-32.2)
[2024-12-25] MEDS: sodium chloride 0.9% 1,000 ML 50 ML IV ×2 (08:14→08:17)
[2024-12-25] MEDS: ARIPiprazole 10 mg Tablet PO (08:14)
[2024-12-25] MEDS: aspirin 81 mg EC Tablet PO (08:14)
[2024-12-25] MEDS: metoprolol tartrate 25 mg Tablet PO (08:14)
[2024-12-25] MEDS: sertraline 100 mg Tablet 200 MG PO (08:17)
--- NOTE | 2024-12-25 10:00 | XACV_ITS ---
Exam Room: [facility] Ht: 178 cm Wt: 123 kg BSA: 2.52 m2 Gender: Male : 1985 Any Known Allergies: Other Exam Priority: Routine Procedure(s): Procedure Description: Diagnostic procedure Procedure Description: Coronary IVUS Procedure Description: Coronary Angiography Diagnostic Cath Status: Urgent Diagnostic Findings * INDICATION: NSTEMI. * Left Main: Severe distal 60-70% stenosis, AISHWARYA: 3 flow. IVUS was performed that confirmed severe distal left main artery stenosis with MLA of 4.8mm2. * Proximal Circumflex: obstructive 70% stenosis, AISHWARYA: 3 flow. High OM/ ramus artery has moderate to severe ostial disease. OM 2 is subtotally occluded and diffusely disease vessel. * Proximal Left Anterior Descending: obstructive 70% stenosis, AISHWARYA: 3 flow. * Proximal Right Coronary Artery to Mid Right Coronary Artery: critical 95% stenosis, AISHWARYA: 3 flow. * Coronary angiography shows right dominance. Conclusions 1. Severe multivessel coronary artery disease including critical stenosis of proximal to mid RCA, severe distal left main artery stenosis, obstructive proximal LAD and severe ostial circumflex artery stenosis.. Recommendations * Patient will be transferred to tertiary care center for CABG. * High intensity statin therapy. * Resume heparin gtt in 4 hours. Continue aspirin. Stop plavix. Interventional RX Recommendation: CABG Diagnostic RX Recommendation: CABG Anticoagulation: Heparin Clinical Evaluation EBL: 5mL-10mL Procedural Details Procedure Consent Obtained. Admit Source: In Patient. Pre-Procedure Time Out. Identified patient by full name and date of as verbalized by the patient/guarantor. Does the consent match the physician's order: Yes. Accurate & Complete Informed Consent: Yes. Inpatient/Outpatient History & Physical on Chart: Yes. If H&P is completed, is and addenduem needed: No; If yes, is the addendum complete: N/A. Visualize and Verify Site with Patient/Guarantor: N/A. Relevant Radiology Images available: Yes. The risks, benefits, and alternatives of sedation and/or procedure were discussed by physician. The patient agrees to continue. Procedure started. [facility] Clinical Fraility Score: 3: Managing Well. 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 Chest Pain Symptom Assessment: Typical Angina Symptoms. Correct patient, site and procedure confirmed by cath team. Current diagnosis: NSTEMI. PERRLA. Strong, equal hand accounting assistant bilaterally. Lungs clear x 5 lobes. IV Site on Arrival: 20 gauge in the right anticubital. IV Site on Arrival: 20 gauge in the left anticubital. IV Fluids: 0.9% NaCl at KVO. 0 mL infused prior to laboratory apparatus glass grinder. Pre Procedural Pulses: bilateral radial was 2+. Oxygen started at 2liters/min via nasal canula. right radial was prepped with chloroprep then draped in the usual sterile fashion. right groin was prepped with chloroprep then draped in the usual sterile fashion. Baseline sample Acquired. HR: 77 BPM. Physician notified. Physician arrived. Physician scrubbed in. Immediate Pre-Procedure Time Out. Correct Patient: Yes; Correct Procedure: Yes; Correct Site: Yes; Correct Patient Position: Yes; Correct Supplies: Yes; Dried Flammable Prep: Yes; Blood Products Available: No;. Ultrasound obtained to assist with arterial access. Lidocaine 1% infiltrated to the right radial. Radial procedure aborted due to occluded radial artery visualized under ultrasound. Lidocaine 1% infiltrated to the right groin. Arterial access obtained with micropuncture set. Low stick. Wire and needle out. Manual pressure held to stop bleeding. Arterial access obtained with micropuncture set. A 5 syrian JL4 catheter in over wire. Multiple views taken of left coronary artery. Catheter removed over the standard wire. A 5 syrian JR4 catheter in over wire. Multiple views taken of right coronary artery. Catheter removed over the standard wire. A 5 syrian JL4 catheter in over wire. Multiple views taken of left coronary artery. Add inventory:Co-commuter pilot, Endoflator. 6 syrian XB 3.5 guide catheter was inserted over the wire. Runthrough guidewire was advanced through the guide catheter to the distal LAD. IVUS catheter in over runthrough wire. IVUS run performed of distal left main. IVUS catheter and wire out. Guide catheter out. ACT drawn. Results 157 seconds. Therapeutic limits - pre-heparin administration 90-150 seconds and monitoring heparin during a vascular procedure >250 seconds. A Right femoral angiogram was performed to determine safe placement of closure device. Lidocaine 1% infiltrated to the right groin. A Angio-Seal VIP ([place]) was successful obtaining hemostatsis at the Right Femoral artery insertion site. EXP 05-19-2025 LOT # [id number]. Physician scrubbed out. Post Procedure: Pulses reassessed and unchanged. PERRLA. Strong, equal hand accounting assistant bilaterally. No VTE prophylaxis required. Post-op diagnosis: Severe left distal left main stenosis, critical RCA stenosis. Complications: None. Estimated blood loss: 5mL-10mL. Responsiveness - Normal response to verbal stimuli; alert and oriented, PERRLA. Airway - Unaffected, no intervention required; spontaneous ventilation. Circulation: W/N/L, pulses unchanged. Nausea/Vomiting: No. Medication's Wasted: Nitro = 50mg. Medication's Wasted: Heparin = 4000 unit , Versed 2mg, Fentanyl 75mcg. Total IV fluids: 75 mL. Procedure completed. Patient transferred by bed to 1st floor. Vital chart was stopped. Access Site Site: Right Femoral artery Sheath Size: 6 Fr Hemostasis Method: Angio-Seal VIP ([place]) Hemostasis Success: Successful Procedure Medications Start: 11:12 AM Stop: 11:12 AM Medication: Versed Amount: 1 mg Route: I.V. Start: 11:12 AM Stop: 11:12 AM Medication: Fentanyl Amount: 50 mcg Route: I.V. Start: 11:17 AM Stop: 11:17 AM Medication: Versed 1 mg and Fentanyl 25 mcg Route: I.V. Start: 11:23 AM Stop: :23 AM Medication: Fentanyl Amount: 25 mcg Route: I.V. Start: 11:42 AM Stop: 11:42 AM Medication: Heparin Amount: 7000 units Route: I.V. Start: 11:52 AM Stop: 11:52 AM Medication: Fentanyl Amount: 25 mcg Route: I.V. I, the attending physician, have reviewed and verified all procedure medications. Yes, all medications given per verbal order History/Risk Factors Hypertension: Yes Dyslipidemia: Yes Peripheral Arterial Disease (PAD): No Myocardial Infarction (LA): No Obesity: Yes Renal Disease: No Prior Interventions PCI: No CABG: No Valve Surgery: No Report Signatures Finalized by Brock Jose MD on 12/25/2024 01:51 PM
--- NOTE | 2024-12-25 11:14 | W.PM.OPSUD ---
Surgery/Procedure H&P Update DATE OF PROCEDURE: December 25, 2024 DATE H&P PERFORMED: 12/24/24 H&P UPDATE INFORMATION: I have reviewed H&P completed within last 30 days, I have examined patient prior to procedure and No changes to prior documentation PREOP DIAGNOSIS: NSTEMI PRIMARY INDICATION FOR PROCEDURE: NSTEMI PLANNED PROCEDURE: Left heart cath with possible percutaneous coronary intervention PATIENT REASSESSED PRIOR TO SEDATION, WITH NO CHANGE NOTED: Yes PHYSICAL EXAM: alert, oriented x 3, clear to auscultation bilaterally and regular rate & rhythm AIRWAY EVAL/ANESTHESIA PLAN: normal airway, ASA III, Local Anesthesia, Risks, benefits & alternatives of sedation and/or procedure discussed and Patient agrees to continue as planned ADDITIONAL INFORMATION: Moderate sedation
--- NOTE | 2024-12-25 12:33 | PM.PROC ---
Procedure Note: Date of procedure: 12/25/24 Pre-procedure diagnosis: NSTEMI Post-procedure diagnosis: other (Severe multivessel coronary artery disease) Procedure: Left heart cath: Left main artery: distal vessel has 60-70% stenosis. IVUS performed confirming MLA of 4.8mm2. Ostial left circumflex/om has 70-80% stenosis. RCA has critical proximal to mid vessel 95% stenosis. Transfer for cabg to tertiary care center Continue aspirin. Stop plavix. Resume heparin gtt in 4 hours. Performing Provider: Brock Jose Estimated blood loss (mL): 10 Complications: None Condition: stable Disposition: floor Coding Level of Care Code Acute Code for [facility] Fwd
--- NOTE | 2024-12-25 13:05 | P.TS_ITS ---
Transfer Summary Providers Date of Admission: 12/24/24 12:42 Date of Discharge/Transfer: 12/25/24 Attending Provider at Admission: Nain Miller MD Attending Provider at Transfer: Nain Miller MD Consults: Cardiology: Dr. Jose Primary Care Provider: Everardo Thomas DO Transfer Plans: Anticipated date of transfer: 12/25/24 . Receiving Facility: [facility] . Receiving Provider: Dr. Perez . Diagnoses at Discharge Discharge Diagnosis (1) Non-ST elevation [place] (NSTEMI): Status: Acute (2) Hyperlipidemia: Status: Acute Qualifiers: Hyperlipidemia type: unspecified Qualified Code(s): E78.5 - Hyperlipidemia, unspecified (3) Type 2 diabetes mellitus: Status: Acute Qualifiers: Diabetes mellitus complication status: without complication Diabetes mellitus it application administrator insulin use: without long-term use Qualified Code(s): E11.9 - Type 2 diabetes mellitus without complications (4) Hypertension: Status: Acute Qualifiers: Hypertension type: primary hypertension Qualified Code(s): I10 - Essential (primary) hypertension Reason for Visit Reason for Visit SOB Hospital Course Hospital Course Micah Boone is a 39 year old male with past medical history of hyperlipidemia, type 2 diabetes mellitus, anxiety, PTSD presents to the ER after ongoing chest pain and heaviness which is retrosternal which started at 12:45 AM. The symptoms persisted so they present to the ER. Patient has been having difficulty in breathing on exertion ongoing for last 3 to 4 months. Currently when seen he is on a heparin drip and a nitro drip complaining of occasional chest pressures with a blood pressure of 140 systolics with heart rate of 100?1 10 bpm. Patient was admitted to the hospital further evaluation and management of non-ST elevation KS. He was continued on heparin and nitro drip. Cardiology was consulted. He underwent cardiac angiogram on 12/25 which showed left main disease but distal 60 to 70% stenosis, ostial LCx stenosis of 80%, critical proximal RCA stenosis of 95%. Need for CABG were discussed in detail with the patient and patient's family who are agreeable. He is been discharged to [facility] under Dr. Pham who has accepted patient's care for further management. Heparin drip has been continued. Plavix has been withheld. Physical Exam Narrative: General: No acute distress, AO x3, anxious HEENT: PERRLA, pupils bilaterally equal and reactive Chest: Normal vesicular breath sounds, no added sounds, equal good air entry bilaterally CVS: S1-S2 regular, no murmurs, no tachycardia, no gallops, no rubs Abdomen: Soft, nontender, no organomegaly, bowel sounds present Neuro: No focal deficits, no facial deformity, AO x3, power 5/5 in all limbs TS Data Studies Completed and Pending Pending at discharge Category Date Time Status OUTPATIENT COORDINATOR request for service Routine Exams 12/25/24 10:00 Ordered Complete Blood Count w/Auto AM LABS Lab 12/26/24 04:00 Ordered Complete Blood Count w/Auto AM LABS Lab 12/27/24 04:00 Ordered Comprehensive Metabolic Panel AM LABS Lab 12/26/24 04:00 Ordered Comprehensive Metabolic Panel AM LABS Lab 12/27/24 04:00 Ordered Magnesium AM LABS Lab 12/26/24 04:00 Ordered Magnesium AM LABS Lab 12/27/24 04:00 Ordered Phosphorus AM LABS Lab 12/26/24 04:00 Ordered Phosphorus AM LABS Lab 12/27/24 04:00 Ordered Platelet Count Q2D Lab 12/26/24 04:00 Ordered Platelet Count Q2D Lab 12/28/24 04:00 Ordered Completed Studies During Hospitalization Category Date Time Status XR chest 1V portable [id number] Stat Exams 12/24/24 08:47 Completed CV. echo complete* [id number] Routine Ultrasound 12/24/24 12:54 Completed Laboratory Last Values WBC 14.80 10^3/uL (3.29-11.43) H 12/25/24 02:19 RBC 4.86 10^6/uL (3.85-5.65) 12/25/24 02:19 Hgb 13.80 g/dL (11.27-16.99) 12/25/24 02:19 Hct 43.1 % (37-53) 12/25/24 02:19 MCV 88.7 fl (82-101) D 12/25/24 02:19 MCH 28.4 pg (27-33) 12/25/24 02:19 MCHC 32.0 g/dL (30-55) D 12/25/24 02:19 RDW 13.4 % (12.1-15.1) 12/25/24 02:19 Plt Count 220 10^3/cmm (157-399) 12/25/24 02:19 MPV 10.7 fL (7.4-10.4) H 12/25/24 02:19 Neut % (Auto) 56.4 % 12/25/24 02:19 Lymph % (Auto) 33.2 % 12/25/24 02:19 [place] % (Auto) 6.8 % 12/25/24 02:19 Eos % (Auto) 2.6 % 12/25/24 02:19 Baso % (Auto) 0.5 % 12/25/24 02:19 Neut # (Auto) 8.33 10^3/uL (1.8-7.7) H 12/25/24 02:19 Lymph # (Auto) 4.9 10^3/uL (0.8-4.8) H 12/25/24 02:19 [place] # (Auto) 1.0 10^3/uL (0.2-0.9) H 12/25/24 02:19 Eos # (Auto) 0.4 10^3/uL (0.0-0.8) 12/25/24 02:19 Baso # (Auto) 0.1 10^3/uL (0.0-0.1) 12/25/24 02:19 Nucleated RBC % (auto) 0 % 12/25/24 02:19 Nucleated RBCs # 0.0 /100WBC 12/25/24 02:19 APTT 36.5 SECONDS (23.9-36.7) D 12/25/24 06:12 Sodium 140 mmol/L (136-145) 12/25/24 02:19 Potassium 3.5 mmol/L (3.5-5.1) 12/25/24 02:19 Chloride 107 mmol/L (98-107) 12/25/24 02:19 Carbon Dioxide 21 mmol/L (22-29) L 12/25/24 02:19 Anion Gap 15.5 (5-19) 12/25/24 02:19 BUN 20 mg/dL (6-20) 12/25/24 02:19 Creatinine 0.8 mg/dL (0.7-1.2) 12/25/24 02:19 GFR Calculation 107.1 mL/min (90-130) 12/25/24 02:19 Glucose 112 mg/dL (65-115) 12/25/24 02:19 POC Glucose 133 mg/dL (70-110) H 12/25/24 06:18 Estimat Average Glucose 126 12/24/24 09:06 Hemoglobin A1c 6.0 % (4.0-6.0) 12/24/24 09:06 Calculated Osmolality 293 mOsm/kg (285-295) 12/25/24 02:19 Lactic Acid 1.4 mmol/L (0.5-2.2) 12/24/24 11:38 Calcium 9.1 mg/dL (8.5-10.5) 12/25/24 02:19 Phosphorus 3.3 mg/dL (2.5-4.5) 12/25/24 02:19 Magnesium 2.0 mg/dL (1.7-2.3) 12/25/24 02:19 Iron 90 ug/dL (59-158) 12/24/24 09:06 TIBC 264 mcg/dl 12/24/24 09:06 % Saturation 34.0 % (20-50) 12/24/24 09:06 Unsat Iron Binding 174 ug/dL (112-347) 12/24/24 09:06 Total Bilirubin 0.3 mg/dL (0.15-1.2) 12/25/24 02:19 AST 50 U/L (0-40) H 12/25/24 02:19 ALT 33 U/L (0-41) 12/25/24 02:19 Alkaline Phosphatase 85 U/L (40-130) 12/25/24 02:19 Troponin T Baseline 98 ng/L (0-15) H 12/24/24 09:06 Troponin T 120 Minute 115.1 ng/L (0-15) H 12/24/24 11:38 Delta Troponin T 17.1 ABS# (0-10) H* 12/24/24 11:38 Troponin T Hi Sens 6Hr 216.1 ng/L (0-15) H 12/24/24 15:38 Troponin T Hi Sens 6Hr Delta 118.1 ng/L (0-12) H* 12/24/24 15:38 Total Protein 6.6 g/dL (6.6-8.7) 12/25/24 02:19 Albumin 3.7 g/dL (3.5-5.2) 12/25/24 02:19 Globulin 2.9 g/dL (1.3-4.6) 12/25/24 02:19 Triglycerides 280 mg/dL (0-150) H 12/25/24 02:19 Cholesterol 174 mg/dL (0-200) 12/25/24 02:19 LDL Cholesterol, Calc 93 mg/dL (50-129) 12/25/24 02: HDL Cholesterol 25 mg/dL (60-100) L 12/25/24 02:19 LDL/HDL Ratio 3.72 RATIO (0.00-3.22) H 12/25/24 02:19 Cholesterol/HDL Ratio 6.96 mg/dL (1.0-5.00) H 12/25/24 02: Vitamin B12 896 pg/mL (232-1245) 12/24/24 09:06 Folate 8.1 ng/mL (4.5-32.2) 12/25/24 06:12 Procalcitonin 0.04 ng/mL (0-0.5) 12/25/24 02: TSH 1.92 uIU/mL (0.27-4.20) 12/24/24 09:06 Urine Color Dark yellow (Yellow) A 12/24/24 16:30 Urine Appearance Clear (CLEAR) 12/24/24 16:30 Urine pH 6.0 (5-7) 12/24/24 16:30 Ur Specific [place] 1.028 (1.005-1.030) 12/24/24 16:30 Urine Protein Trace (Negative) A 12/24/24 16:30 Urine Glucose (UA) Negative (Normal) 12/24/24 16:30 Urine Ketones Trace (Negative) 12/24/24 16:30 Urine Blood 2+ (Negative) A 12/24/24 16:30 Urine Nitrate Negative (Negative) 12/24/24 16:30 Urine Bilirubin Negative (Negative) 12/24/24 16:30 Urine Urobilinogen 1.0 mg/dL (Negative) 12/24/24 16:30 Ur Leukocyte Esterase Negative (Negative) 12/24/24 16:30 Urine RBC 10-15 /hpf (0-2) H 12/24/24 16:30 Urine WBC 0-4 /hpf (0-5) H 12/24/24 16:30 Ur Squamous Epith Cells 0-4 /hpf (0-5) H 12/24/24 16:30 Calcium Oxalate Crystal 0-4 /hpf H 12/24/24 16:30 Amorphous Sediment Not Reportable 12/24/24 16:30 Urine Bacteria 1+ /hpf (NONE) H 12/24/24 16:30 Hyaline Casts None /lpf 12/24/24 16:30 Urine Opiates Screen Negative ng/mL (Negative) 12/24/24 16:30 Ur Barbiturates Screen Negative ng/mL (Negative) 12/24/24 16:30 Ur Phencyclidine Scrn Negative ng/mL (Negative) 12/24/24 16:30 Ur Amphetamines Screen Positive ng/mL (Negative) H 12/24/24 16:30 U Benzodiazepines Scrn Negative ng/mL (Negative) 12/24/24 16:30 Urine Cocaine Screen Negative ng/mL (Negative) 12/24/24 16:30 U Marijuana (THC) Screen Positive ng/mL (Negative) H 12/24/24 16:30 Influenza A (PCR) Negative (Negative) 12/24/24 10:50 Influenza Type B (PCR) Negative (Negative) 12/24/24 10:50 RSV (PCR) Negative (Negative) 12/24/24 10:50 SARS-CoV-2 (PCR) Negative (Negative) 12/24/24 10:50 Radiology Impressions Chest X-Ray 12/24/24 08:47 IMPRESSION: 1. Negative chest. Echocardiogram: CONCLUSIONS LV systolic function is mildly reduced with EF of 45-50% Grade 1 diastolic dysfunction Mild mitral regurgitation No comparison studies are available. Recent Clincial Data Last Vital Signs Temp 97.7 F 12/25/24 07:50 Pulse 66 12/25/24 12:00 Resp 22 H 12/25/24 12:00 BP 128/87 12/25/24 12:00 Pulse Ox 92 12/25/24 12:00 O2 Del Method Room Air 12/25/24 12:00 Vital Signs Temp Pulse Resp BP Pulse Ox O2 Del Method 12/25/24 12:00 66 22 H 128/87 92 Room Air 12/25/24 07:50 97.7 F 70 20 H 131/86 95 Room Air 12/25/24 04:00 81 15 122/87 96 Room Air Intake & Output/Weight 12/23/24 12/24/24 12/25/24 12/26/24 06:59 06:59 06:59 06:59 Intake Total 815.166 / 753.819 7664.567 / 1024.567 Output Total 525 / 525 Balance 290.166 / 846.271 6107.567 / 1024.567 Weight 123.468 kg Vitals Last Vital Signs Temp 97.7 F 12/25/24 07:50 Pulse 66 12/25/24 12:00 Resp 22 H 12/25/24 12:00 BP 128/87 12/25/24 12:00 Pulse Ox 92 12/25/24 12:00 O2 Del Method Room Air 12/25/24 12:00 TS Medications Medications Acetaminophen (Acetaminophen 325 Mg Tablet) 650 mg PO Q6H PRN PRN Reason: Mild/Mod Pain Or Temp >/= 101 Alprazolam (Alprazolam 0.5 Mg Tablet) 0.5 mg PO TID PRN PRN Reason: ANXIETY Last Admin: 12/24/24 20:35 Dose: 0.5 mg Aripiprazole (Aripiprazole 10 Mg Tablet) 10 mg PO DAILY [facility] Last Admin: 12/25/24 08:14 Dose: 10 mg Aspirin (Aspirin 81 Mg Ec Tablet) 81 mg PO DAILY [facility] Last Admin: 12/25/24 08:14 Dose: 81 mg Atorvastatin Calcium (Atorvastatin 40 Mg Tablet) 80 mg PO BEDTIME [facility] Last Admin: 12/24/24 20:26 Dose: 80 mg Docusate Sodium (Docusate Sodium 100 Mg Capsule) 100 mg PO BID [facility] Last Admin: 12/25/24 08:14 Dose: Not Given Glucagon (Glucagon 1 Mg/Ml Kit 1 Ml) 1 mg IM ONCE PRN; Protocol PRN Reason: Adult Acute Hypoglycemia Nursing Prot. Heparin Sodium (Porcine) (Heparin 5,000 Unit/Ml Inj 1 Ml) 0 unit IVP PRN PRN; Protocol PRN Reason: Heparin Weight Based Protocol -Subsequent Bolus Heparin Sodium/Sodium Chloride (Heparin Drip) 25,000 unit in 500 mls @ 0 mls/hr IV CONT JENSEN; Protocol Last Titration: 12/25/24 08:18 Dose: 15.22 unit/kg/hr, 37 mls/hr Nitroglycerin/Dextrose (Nitroglycerin Drip) 50 mg in 250 mls @ 0 mls/hr IV .Q0M [facility]; Protocol Last Admin: 12/24/24 12:38 Dose: 5 mcg/min, 1.5 mls/hr Sodium Chloride (Sodium Chloride 0.9%) 1,000 mls @ 50 mls/hr IV .Q20H [facility] Last Admin: 12/25/24 08:17 Dose: 50 mls/hr Dextrose (D5w) 500 mls @ 0 mls/hr IV ONCE PRN; Protocol PRN Reason: Adult Acute Hypoglycemia Prot Dextrose (D10w) 125 mls @ 750 mls/hr IV PRN PRN; Protocol PRN Reason: Adult Acute Hypoglycemia Nursing Protocol Dextrose (D10w) 250 mls @ 1,000 mls/hr IV PRN PRN; Protocol PRN Reason: Adult Acute Hypoglycemia Nursing Protocol Sodium Chloride (Sodium Chloride 0.9%) 1,000 mls @ 50 mls/hr IV .Q20H ONE Stop: 12/26/24 03:29 Last Admin: 12/25/24 08:14 Dose: 50 mls/hr Insulin Human Lispro (Insulin Lispro 100 Unit/1 Ml) 0 unit SUBCUT WM&BEDTIME [facility]; Protocol Last Admin: 12/25/24 07:53 Dose: Not Given Lactulose (Lactulose Oral Liq 20 Gm/30 Ml Udc) 10 gm PO DAILY PRN; Protocol PRN Reason: Constipation (see protocol) Magnesium Hydroxide (Magnesium Hydroxide 30 Ml Udc) 30 ml PO DAILY PRN; Protocol PRN Reason: Constipation (see protocol) Metoprolol Tartrate (Metoprolol Tartrate 25 Mg Tablet) 25 mg PO BID@0900,2100 [facility] Last Admin: 12/25/24 08:14 Dose: 25 mg Morphine Sulfate (Morphine 4 Mg/Ml Sdv 1 Ml) 2 mg IVP Q4H PRN PRN Reason: SEVERE PAIN Ondansetron HCl (Ondansetron 2 Mg/Ml Sdv 2 Ml) 4 mg IVP Q6H PRN PRN Reason: NAUSEA AND VOMITING Sertraline HCl (Sertraline 100 Mg Tablet) 200 mg PO DAILY [facility] Last Admin: 12/25/24 08:17 Dose: 200 mg Trazodone HCl (Trazodone 50 Mg Tablet) 50 mg PO BEDTIME [facility] Last Admin: 12/24/24 20:33 Dose: Not Given Discontinued Medications Aspirin (Aspirin 81 Mg Chew Tablet) 324 mg PO NOW ONE Stop: 12/24/24 12:25 Last Admin: 12/24/24 12:39 Dose: 324 mg Aspirin (Aspirin 325 Mg Tablet) 325 mg PO ONCE ONE Stop: 12/24/24 14:28 Last Admin: 12/24/24 15:44 Dose: Not Given Diphenhydramine HCl (Diphenhydramine 50 Mg Capsule) 50 mg PO ONCE ONE Stop: 12/25/24 08:01 Last Admin: 12/25/24 11:07 Dose: Not Given Fentanyl (Fentanyl 50 Mcg/Ml Inj 2ml) Confirm Administered Dose 100 mcg .ROUTE .STK-MED ONE Stop: 12/25/24 10:53 Fentanyl (Fentanyl 50 Mcg/Ml Inj 2ml) Confirm Administered Dose 100 mcg .ROUTE .STK-MED ONE Stop: 12/25/24 11:31 Heparin Sodium (Porcine) (Heparin 5,000 Unit/Ml Inj 1 Ml) 0 unit IVP ONCE ONE; Protocol Stop: 12/24/24 12:23 Last Increment: 12/24/24 12:59 Dose: 6,300 unit Incremental Dosing Total Given: 6,300 unit Heparin Sodium (Porcine) (Heparin 5,000 Unit/Ml Inj 1 Ml) Confirm Administered Dose 10,000 unit .ROUTE .STK-MED ONE Stop: 12/25/24 10:53 Heparin Sodium (Porcine) (Heparin 5,000 Unit/Ml Inj 1 Ml) Confirm Administered Dose 5,000 unit .ROUTE .STK-MED ONE Stop: 12/25/24 11:42 Lidocaine HCl (Xylocaine) Confirm Administered Dose 20 mls @ as directed .ROUTE .STK-MED ONE Stop: 12/25/24 10:53 Ketorolac Tromethamine (Ketorolac 30 Mg/Ml Inj) 30 mg IVP ONCE ONE Stop: 12/24/24 10:39 Last Admin: 12/24/24 11:02 Dose: 30 mg Midazolam HCl (Midazolam 1 Mg/Ml Inj 2 Ml) Confirm Administered Dose 2 mg .ROUTE .STK-MED ONE Stop: 12/25/24 10:52 Midazolam HCl (Midazolam 1 Mg/Ml Inj 2 Ml) Confirm Administered Dose 2 mg .ROUTE .STK-MED ONE Stop: 12/25/24 11:23 Nitroglycerin (Nitroglycerin 5 Mg/Ml Sdv 10 Ml) Confirm Administered Dose 50 mg .ROUTE .STK-MED ONE Stop: 12/25/24 10:52 Allergies azithromycin Allergy (Verified 12/24/24 08:52) ADR-Seizure Home Medications sertraline 100 mg tablet 200 mg PO DAILY 03/14/24 [History Confirmed 12/24/24] albuterol sulfate 90 mcg/actuation aerosol inhaler 2 puff inhalation QID PRN Shortness Of Breath 12/24/24 [History Confirmed 12/24/24] aripiprazole 10 mg tablet 10 mg PO DAILY 12/24/24 [History Confirmed 12/24/24] glimepiride 1 mg tablet 1 mg PO QAM 12/24/24 [History Confirmed 12/24/24] lisdexamfetamine 30 mg capsule (Vyvanse) 30 mg PO QAM 12/24/24 [History Confirmed 12/24/24] multivit,calcium,min-folic acid 240 mcg-D3 25 mcg-lycop 300 mcg tablet (One A Day Men Complete) 1 tab PO DAILY 12/24/24 [History Confirmed 12/24/24] mupirocin 2 % topical ointment 1 applic topical BID PRN Skin Irritation 12/24/24 [History Confirmed 12/24/24] testosterone cypionate 200 mg/mL intramuscular oil 50 mg SUBCUT Q7D 12/24/24 [History Confirmed 12/24/24] trazodone 50 mg tablet 50 mg PO BEDTIME 12/24/24 [History Confirmed 12/24/24] Discharge Plan Discharge Patient Disposition: Home Condition: Stable Prescriptions: No Action sertraline 100 mg tablet 200 mg PO DAILY trazodone 50 mg Tablet 50 mg PO BEDTIME glimepiride 1 mg Tablet 1 mg PO QAM Rx Instructions: administer with breakfast mupirocin 2 % Ointment 1 applic TOPICAL BID PRN (Reason: Skin Irritation) testosterone cypionate 200 mg/mL Oil 50 mg SUBCUT Q7D albuterol sulfate 90 mcg/actuation Hfa Aerosol Inhaler 2 puff INHALATION QID PRN (Reason: Shortness Of Breath) aripiprazole 10 mg Tablet 10 mg PO DAILY lisdexamfetamine [Vyvanse] 30 mg Capsule 30 mg PO QAM One A Day Men Complete 240-25-300 mcg Tablet 1 tab PO DAILY Discharge Orders: Transfer Out of Facility (Order); Ordered 12/25/24 Ordered By: Nain Miller Referrals: Everardo Thomas DO [Primary Care Provider] - Patient Instructions: Opioid Safety Transfer Attestations Time Spent in Transfer Care: critical care time (Managing heparin drip, triple-vessel disease, nitro drip) Critical Care Time (min): 69 Specific Discharge Activities: educating patient, educating and/or supporting family/caregiver, discussing with pcp/other providers, discussing with protective services case worker/social workers/dc planners, documenting/other paperwork and evaluating patient/reviewing data Status at Transfer: Cognitive status at transfer: cognitively intact ; Behavioral status at transfer: cooperative ; Functional status at transfer: independent ambulation ; Overall status at transfer: patient is not back to baseline Quality Metrics Clinical Quality Measures [ Acute Myocardial Infaction { Clinical Trial Participant: No; Contraindication to aspirin: None; Aspirin prescribed; Contraindication to statin: None; Statin prescribed; Contraindication to PCI: Procedure contraindicated;}] Coding Level of Care Code Critical Care >/= 30 minutes Critical care time (in minutes): 69 The high probability of a clinically significant, sudden or life threatening deterioration, as referenced in this documentation, required my full and direct attention, intervention and personal management. The critical care time shown is in addition to time spent performing any reported separately billable procedures and includes the following: [x] Data and vital sign review and interpretation [x ] Patient assessment, examination and intervention [x] Medication orders and management [x] Patient/Family updates as able [x] Care Coordination and Documentation. Diagnoses Non-ST elevation [place] (NSTEMI) I21.4 Hyperlipidemia, unspecified hyperlipidemia type E78.5 Hyperlipidemia type: unspecified Type 2 diabetes mellitus without complication, without long-term current use of insulin E11.9 Diabetes mellitus complication status: without complication Diabetes mellitus long-term insulin use: without it application administrator use Primary hypertension I10 Hypertension type: primary hypertension
[2024-12-25 13:42] LABS: Glucose Point of Care 117 mg/dL (70-110)
--- NOTE | 2024-12-25 13:53 | P.PN_ITS ---
Subjective 2 Subjective: Patient had coronary angiogram that showed severe multivessel CAD. Plan for transfer to tertiary center for CABG. Currently chest pain free. Vitals/I&O/Wt Last Vital Signs Temp 97.7 F 12/25/24 07:50 Pulse 66 12/25/24 12:00 Resp 22 H 12/25/24 12:00 BP 128/87 12/25/24 12:00 Pulse Ox 92 12/25/24 12:00 O2 Del Method Room Air 12/25/24 12:00 12/24/24 12/25/24 12/25/24 22:59 06:59 14:59 Intake Total 243.833 / 243.833 571.333 / 899.682 9278.567 / 1024.567 Output Total 125 / 125 400 / 525 Balance 118.833 / 118.833 171.333 / 504.545 9266.567 / 1024.567 Weight last 48 hrs Weight 272 lb 3.2 oz Weight 270 lb 6.4 oz Weight 268 lb Physical Exam 2 Narrative: GENERAL: Patient is alert, awake and oriented x3. [] NECK: No jugular vein distension. [] HEENT: No cyanosis. No icterus. No pallor. [] HEART: Regular S1 and S2. No murmur, rub or gallop. [] LUNGS: Clear to auscultate bilaterally. CENTRAL NERVOUS SYSTEM: Grossly nonfocal. [] EXTREMITIES: Lower extremities with 1+ edema bilaterally. Data 12/25/24 02:19 12/25/24 02:19 A&P Assessment and plan (1) Non-ST elevation [place] (NSTEMI): (2) Hyperlipidemia: Qualifiers: Hyperlipidemia type: unspecified Qualified Code(s): E78.5 - Hyperlipidemia, unspecified (3) Type 2 diabetes mellitus: Qualifiers: Diabetes mellitus terminal superintendent insulin use: without terminal superintendent use Diabetes mellitus complication status: without complication Qualified Code(s): E11.9 - Type 2 diabetes mellitus without complications (4) Hypertension: Qualifiers: Hypertension type: primary hypertension Qualified Code(s): I10 - Essential (primary) hypertension Plan Patient is chest pain-free at this time. Has severe multivessel coronary artery disease. Will be transferred to [facility] for CABG. Transfer accepted. Awaiting bed. Resume heparin GTT in 4 hours. Continue aspirin. Stop Plavix ECHO showed mildly reduced LV systolic function. Thank you for involving us with care of this patient. We will continue to follow. Please call with questions. PDMP PDMP Reviewed: Not Reviewed Attestations 2 Medical Necessity Statement*: Care expected to cross 2 midnights. Coding Level of Care Code Acute Code for g Fwd Diagnoses Non-ST elevation IN (NSTEMI) I21.4 Hyperlipidemia, unspecified hyperlipidemia type E78.5 Hyperlipidemia type: unspecified Type 2 diabetes mellitus without complication, without long-term current use of insulin E11.9 Diabetes mellitus chcf insulin use: without chcf use Diabetes mellitus complication status: without complication Primary hypertension I10 Hypertension type: primary hypertension
== END 2024-12-25 21:23 | disposition short-term general hospital (02) | DRG 282 ==
LOC: ER 11:23 → ER IP 12:43 → CSU 12:57
PROVIDERS: Internal Medicine; Admitting Provider Student in an Organized Health Care Education/Training Program; Emergency Provider Family Medicine; PCP Family Medicine; Visit Provider Student in an Organized Health Care Education/Training Program
PROC: B2111ZZ Fluoroscopy of Multiple Coronary Arteries using Low Osmolar Contrast (ICD-10-PCS; principal; 2024-12-25 11:00)
DX: I21.4 Non-ST elevation (NSTEMI) myocardial infarction (principal); I25.10 Atherosclerotic heart disease of native coronary artery without angina pectoris; E78.00 Pure hypercholesterolemia, unspecified; E11.9 Type 2 diabetes mellitus without complications; I10 Essential (primary) hypertension; Z79.84 Long term (current) use of oral hypoglycemic drugs; Z79.891 Long term (current) use of opiate analgesic; F41.9 Anxiety disorder, unspecified; F43.10 Post-traumatic stress disorder, unspecified; E66.9 Obesity, unspecified; Z68.39 Body mass index [BMI] 39.0-39.9, adult; R00.0 Tachycardia, unspecified
CPT/HCPCS: 36415; 36416; 71045; 80053; 80061; 80306; 81001; 82607; 82746; 82962; 83036; 83540; 83550; 83605; 83735; 84100; 84145; 84443; 84484; 85025; 85347; 85730; 87637; 92978; 93005; 93306; 93454; 94664; 96365; 96366; 96372; 96374; 96375; 99152; 99153; 99285; A9270; C1753; C1769; C1887; C1894; J1644; J1815; J1885; J2250; J3010; J3490; J7030; Q9967